=== PATIENT | male | born 1975 | race Caucasian/White ===

== ENCOUNTER 2022-01-11 15:36 | Outpatient (CLI) | payer BC, SELFPAY ==
--- NOTE | ~2022-01-11 | XR_ITS ---
XR sacroiliac joints min 3V DATE: 01/11/2022 16:11 INDICATION: Tailbone/coccygeal pain since injury 5 months ago TECHNIQUE: AP and bilateral oblique views of the sacroiliac joints COMPARISON: None FINDINGS: Normal alignment of the sacroiliac joints. No fracture, dislocation, erosive change, ankylo sis or significant degenerative changes noted. The pubic symphysis is intact. No sacral fractures evident. The coccyx is not optimally demonstrated on this examination. IMPRESSION: Negative sacroiliac joints Reviewed, dictated and finalized at [facility]. Reviewed, dictated and finalized at [facility]. IMPRESSION: Negative sacroiliac joints
== END 2022-01-11 15:37 | disposition home or self-care (01) ==
LOC: ANHIMG 15:44
PROVIDERS: PCP Internal Medicine; Visit Provider Physician Assistant
DX: M53.3 Sacrococcygeal disorders, not elsewhere classified (principal)
CPT/HCPCS: 72202

== ENCOUNTER 2022-03-06 13:51 | Outpatient (CLI) | payer BC, SELFPAY ==
--- NOTE | ~2022-03-06 | US_ITS ---
EXAMINATION: US scrotum doppler DATE: 03/06/2022 14:32 INDICATION: Bilateral testicular pain. TECHNIQUE: Grayscale and Doppler ultrasound images of the testes were obtained. COMPARISON: None. FINDINGS: The right testis measures 4.5 x 1.9 x 2.5. The left testis measures 4.1 x 2.0 x 2.7. Incide ntal small extratesticular calcification seen in the left scrotal wall (scrotolith). There is normal vascular flow to both testes. No testicular mass. The right epididymis has normal vascular flow. 1.1 cm epididymal cyst. The left epididymis is normal with normal vascular flow. Small left hydrocele. No varicoceles. IMPRESSION: 1. 1.1 cm left epididymal head cyst. 2. Small left hydrocele. Reviewed, dictated and finalized at [facility].
== END 2022-03-06 13:52 | disposition home or self-care (01) ==
LOC: ANHIMG 13:53
PROVIDERS: PCP Physician Assistant; Visit Provider Physician Assistant
DX: N50.811 Right testicular pain (principal); N50.812 Left testicular pain; L72.0 Epidermal cyst; N43.2 Other hydrocele
CPT/HCPCS: 76870; 93976

== ENCOUNTER → 2023-06-04 14:46 | Outpatient (CLI) | payer BC, SELFPAY ==
--- NOTE | ~2023-06-04 | CT_ITS ---
EXAMINATION: CT IAC/mastoids BI wo con DATE: 06/04/2023 15:00 INDICATION: Conductive hearing loss in right ear. TECHNIQUE: Computed tomography (CT) of the temporal bones was performed without intravenous contrast. Automated exposure control and iterative reconstruction technique were employed. The dose-length pro duct was 215.72 mGy-cm. COMPARISON: None FINDINGS: RIGHT TEMPORAL BONE: The internal auditory canal, cochlea, vestibule, semicircular canals, vestibular aqueduct, carotid ca nal, jugular bulb, facial nerve course, and ossicles are normal. There is material abutting the ossic les including in Prussak space. Scutum is normal. There are no erosions of bone. There is a small rig ht mastoid effusion. There is thickening of the tympanic membrane superiorly. The external auditory c anal is normal. LEFT TEMPORAL BONE: The internal auditory canal, cochlea, vestibule, semicircular canals, vestibular aqueduct, carotid ca nal, jugular bulb, facial nerve course, ossicles, tympanic membrane, Prussak space, scutum, mastoid a ir cells, and external auditory canal are normal. IMPRESSION: 1. Small volume of material in right tympanic cavity including in Prussak space. No erosions of bone to suggest chronic otitis media or cholesteatoma. Reviewed, dictated and finalized at [facility]. IMPRESSION: 1. Small volume of material in right tympanic cavity including in Prussak space . No erosions of bone to suggest chronic otitis media or cholesteatoma.
== END ==
PROVIDERS: PCP Internal Medicine
DX: H90.11 Conductive hearing loss, unilateral, right ear, with unrestricted hearing on the contralateral side (principal)
CPT/HCPCS: 70480